=== PATIENT | female | born 1940 | race Caucasian/White ===

== ENCOUNTER 2017-01-22 07:12 | Day surgery (SDC) | payer MEDICARE, MEDICAID ==
[~2017-01-22] VITALS: Ht 152.4 cm; Wt 95.3 kg
[2017-01-22] VITALS (9 sets, daily range): BP systolic 130–153; BP diastolic 58–73
--- NOTE | 2017-01-22 07:11 | Pre-Procedure Note/Attestation ---
Pre-Procedure Note/Attestation Complete Prior to Procedure Planned Procedure: left - Removal of cataract and placement of intraocular lens , left eye Procedure Narrative: Removal of cataract and placement of intraocular lens, left eye Indications for Procedure Pre-Operative Diagnosis: Cataract , nuclear, cortical, left eye Attestation I attest that I discussed the nature of the procedure; its benefits; risks and complications; and alternatives (and the risks and benefits of such alternatives ), prior to the procedure, with the patient (or the patient's legal sales representative public [employer]). I attest that, if there was a reasonable possibility of needing a blood transfusion, the patient (or the patient's legal sales representative public [employer]) was given the [place] [facility] standardized written summary, pursuant to the [place] Blood Safety Act ([place] Health and Safety Code # 1645, as amended). I attest that I re-evaluated the patient just prior to the surgery and that there has been no change in the patient's H&P, except as documented below: Dionicio Ortega MD Jan 22, 2017 07:11
[~2017-01-22 07:12] MED LIST: ASPIRIN81 MG ORAL; BENICAR5 MG ORAL; BYSTOLIC2.5 MG ORAL; GLIPIZIDE5 MG ORAL; JANUMET 50-1,01 EACH ORAL; LEVEMIR FL100 UNIT/1 SUBQ; LOVASTATIN20 MG ORAL; VICTOZA 2-0.6 MG/0.1 SUBQ; VITAMIN B650 M1 PO
[2017-01-22] MEDS ORDERED: Phenylephrine 10% Opth Soln 5ml ONE (07:38)
[2017-01-22] MEDS ORDERED: Akten 3.5% 1ml Btl ONE (07:38)
[2017-01-22] MEDS ORDERED: Vigamox Opth Soln ONE (07:38)
[2017-01-22] MEDS ORDERED: Cyclopentolate 1% Opth Sol ONE (07:39)
[2017-01-22] MEDS ORDERED: Flurbiprofen 0.03% Opth Sol 2.5ml ONE (07:39)
[2017-01-22] MEDS: Phenylephrine 10% Opth Soln 5ml LEFT EYE SCH ×3 (07:43→08:02)
[2017-01-22] MEDS: Flurbiprofen 0.03% Opth Sol 2.5ml LEFT EYE SCH ×3 (07:43→08:01)
[2017-01-22] MEDS: Cyclopentolate 1% Opth Sol LEFT EYE SCH ×3 (07:44→08:02)
[2017-01-22] MEDS: Akten 3.5% 1ml Btl LEFT EYE SCH ×3 (07:44→08:02)
[2017-01-22] MEDS: Vigamox Opth Soln LEFT EYE SCH ×3 (07:44→08:02)
[2017-01-22] MEDS ORDERED: fentaNYL 100 mcg/2 mL IV ONE (09:30)
[2017-01-22] MEDS ORDERED: Midazolam 2mg/2ml Inj ONE (09:30)
[2017-01-22] MEDS ORDERED: LR 1000ml ONE (09:30)
[2017-01-22] MEDS ORDERED: NS Irrig 1000ml ONE (09:30)
[2017-01-22] MEDS ORDERED: Sterile Water Irrig 1000ml IRRIG ONE (09:30)
[2017-01-22] MEDS ORDERED: BSS 500ml btl ONE (09:35)
[2017-01-22] MEDS ORDERED: Lidocaine 1% MPF 10mg/ml 5ml ONE (09:35)
[2017-01-22] MEDS ORDERED: Fluorescein Strips ONE (09:35)
[2017-01-22] MEDS ORDERED: Pred Forte 1% Opth Susp 1ml ONE (09:35)
[2017-01-22] MEDS ORDERED: Tetracaine 0.5% Opth Soln ONE (09:36)
[2017-01-22] MEDS ORDERED: Maxitrol Opth Oint 3.5gm ONE (09:36)
[2017-01-22] MEDS ORDERED: Dexamethasone 4mg/ml vial ONE (09:36)
[2017-01-22] MEDS ORDERED: Lidocaine 4% Amp ONE (09:36)
[2017-01-22] MEDS ORDERED: Carbachol 0.01% Op Soln 1.5ml vial ONE (09:37)
[2017-01-22] MEDS ORDERED: Povidone-Iodine 5% opth solution ONE (09:37)
[2017-01-22] MEDS ORDERED: EPINEPHrine 1mg/1ml Amp ONE (09:37)
[2017-01-22] MEDS ORDERED: BSS 15ml BTL ONE (09:38)
[2017-01-22] MEDS ORDERED: Sodium Hyaluronate 10 mg/ml 0.85ml ONE ×2 (09:39→13:49)
[2017-01-22] MEDS ORDERED: DiphenhydrAMINE 50mg/ml Inj ONE (10:07)
--- NOTE | 2017-01-22 10:24 | Anethesia Preoperative Eval ---
Anesthesia Pre-op PMH/ROS General Date of Evaluation: Jan 22, 2017 Time of Evaluation: 09:27 Anesthesiologist: barry ASA Score: ASA 3 Mallampati Score Class I : Soft palate, uvula, fauces, pillars visible Class II: Soft palate, uvula, fauces visible Class III: Soft palate, base of uvula visible Class IV: Only hard plate visible Mallampati Classification: Class II Surgeon: donnell Diagnosis: cataract left eye Surgical Procedure: removal of catract left eye with IOL placement Anesthesia History: none Family History: no anesthesia problems Allergies: Coded Allergies: No Known Allergies (Unverified , 09/20/14) Medications: see eMAR Past Medical History Cardiovascular: Denies: CAD, HTN, CA, arrhythmia, other, valve dz Pulmonary: Denies: COPD, MEGAN, asthma, other Gastrointestinal/Genitourinary: Reports: GERD Neurologic/Psychiatric: Denies: CVA, TIA, dementia, depression/anxiety, other Endocrine: Reports: hypothyroidism HEENT: Reports: cataract (L) Hematology/Immune: Denies: DVT, anemia, bleeding disorder, other Musculoskeletal/Integumentary: Denies: DDD, DJD, OA, RA, edema, other Other: obesity Anesthesia Pre-op Phys. Exam Physician Exam Last Vital Signs Date Time Temp Pulse Resp B/P Pulse Ox O2 Delivery O2 Flow Rate FiO2 01/22/17 07:57 97.5 67 18 149/58 96 Room Air Constitutional: NAD Neurologic: CN 2-12 intact Cardiovascular: RRR Respiratory: CTA - decreased at base Gastrointestinal: S/NT/ND Airway Exam Mallampati Score: Class II MO: full ROM: full Teeth: missing Dentures: upper - partial Anesthesia Pre-op A/P Studies Pre-op Studies: EKG - NSB Risk Assessment & Plan Status Change Before Surgery: No Pre-Antibiotics Given Within 1 Hr of Incision: No Elizabet Oliver CRNA Jan 22, 2017 10:24
--- NOTE | 2017-01-22 10:37 | Brief Operative Note ---
Immediate Post Operative Note Operative Note Pre-op Diagnosis: Cataract , nuclear, cortical, left eye Procedure: phaco pc iol, OS Post-op Diagnosis: same as pre-op Surgeon: Keila Ortega MD Anesthesiologist: Louis Oliver CRNA Anesthesia: local, MAC Specimen: none Complications: none Estimated Blood Loss: minimal Implant(s) used?: Yes - jeremiah foreman zcb00 25.5 Dionicio Ortega MD Jan 22, 2017 10:37
--- NOTE | 2017-01-22 10:43 | Discharge Instructions ---
Discharge Instructions Discharge Instructions Follow Up Orders Keep shield on at all times except to place eye drops Continue pre op eye drops Return to Work/School on: Jan 22, 2017 For Congestive Heart Failure Reminder Report to your physician any weight gain of 5 pounds or more in one week. Dionicio Ortega MD Jan 22, 2017 10:43
--- NOTE | 2017-01-22 10:43 | Discharge Instructions ---
Discharge Instructions Discharge Instructions Follow Up Orders Followup in Dr Ortega's office tomorrow Return to Work/School on: Jan 22, 2017 For Congestive Heart Failure Reminder Report to your physician any weight gain of 5 pounds or more in one week. Dionicio Ortega MD Jan 22, 2017 10:43
--- NOTE | 2017-01-22 12:05 | Immediate Post-Op Evaluation ---
Immediate Post-Op Evalulation Immediate Post-Op Evalulation Date of Evaluation: Jan 22, 2017 Time of Evaluation: 10:37 IV Fluids: 400 Estimated Blood Loss: 0 Blood Pressure Systolic: 151 Blood Pressure Diastolic: 73 Pulse Rate: 57 Respiratory Rate: 22 O2 Sat by Pulse Oximetry: 100 Temperature (Fahrenheit): 97 Pain Score (1-10): 0 Nausea: No Vomiting: No Patient Status: awake Hydration Status: adequate Given Within 1 Hr of Incision: Elizabet Santamaria CRNA Jan 22, 2017 12:05
--- NOTE | 2017-01-22 12:06 | 48 Hour Post Anesthesia Eval ---
Post Anesthesia Evaluation Date of Evaluation: Jan 22, 2017 Time of Evaluation: 10:45 Blood Pressure Systolic: 150 0: 70 Pulse Rate: 56 Respiratory Rate: 18 Temperature (Fahrenheit): 97 O2 Sat by Pulse Oximetry: 100 Airway: patent Nausea: No Vomiting: No Pain Intensity: 0 Hydration Status: adequate Mental Status/LOC: patient returned to baseline Follow-up care needed: patient intructions given Elizabet Oliver CRNA Jan 22, 2017 12:06
--- NOTE | 2017-01-22 19:45 | Operative Note - Dictated ---
DATE OF OPERATION: 01/22/2017 SURGEON: Dionicio Ortega M.D. REAL ESTATE ACQUISITION ANALYST: None. ANESTHESIOLOGIST: ANESTHESIA: Local/standby/monitored anesthesia care. PREOPERATIVE DIAGNOSIS: Cataract, nuclear, cortical, left eye. POSTOPERATIVE DIAGNOSIS: Cataract, nuclear, cortical, left eye. PROCEDURES: 1. Phacoemulsification of cataract, left eye. 2. Placement of posterior chamber intraocular lens, left eye (TECNIS MARITA model ZCB00, power 25.5 diopters). SPECIMENS: None. COMPLICATIONS: None. INDICATIONS FOR SURGERY: The patient has had painless progressive decrease in visual acuity in left eye secondary to cataract. The patient understands the risks of surgery including infection, bleeding, need for further surgery, loss of vision, no improvement in vision, loss of the eye, loss of life, glaucoma, retinal detachment, understands these risks and elects to proceed with surgery. FINDINGS: The patient had a +3 nuclear sclerotic cataract as well as +1 to 2 cortical changes. 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 Operative Note: After informed consent was obtained, the patient was brought into the operating room, placed in supine position. Cardiac and respiratory monitors were attached. A time-out was performed and all criteria were met and everyone in the room agreed. The left eye was then draped and prepped in sterile manner for ocular surgery. A lid speculum placed in the eye. A 1% lidocaine preservative-free was injected at the approximate 1 o'clock limbus. A conjunctiva peritomy from approximately 1 o'clock to 2:30 was made and dissected posteriorly. Hemostasis was maintained with bipolar cautery. A 2.6 mm limbal incision was made centered approximately 2 o'clock and dissected anteriorly. A paracentesis was made at approximately 5:30 and Shugarcaine was injected into the anterior chamber followed by Healon. The anterior chamber was then entered using a 2.6 mm keratome through the limbal incision. An anterior capsulorrhexis was then performed. Hydrodissection and hydrodelineation of the lens was then performed. The lens was phacoemulsified using divide and conquer four-quadrant technique. Residual cortical material was then aspirated. Healon was then injected into the anterior chamber and capsular bag. The lens was taken from its package, placed into the cartridge, and the tip of the cartridge was placed through the limbal incision. The lens was injected into the capsular bag and centered nicely with a [place] hook. Healon was aspirated from the anterior chamber and capsular bag. One 10-0 nylon interrupted suture was then placed through the limbal incision. The knot was rotated and buried. Care was taken during the entire procedure not to touch the endothelium. Several fragments of cortex were irrigated free at the end the case and also note that the anterior chamber was shallow. The patient tolerated the procedure well and left the operating room awake, alert, and in stable condition. After the drapes were removed and drops of Pred Forte, Vigamox, and Maxitrol ointment were applied to the eye and then a shield. The patient left the operating room awake, alert, and in stable condition. She is to follow up the next day, but sooner on a p.r.n. basis. Dionicio Ortega M.D. DR: ERIC JOB#: [id number] CC:
== END 2017-01-22 11:40 | disposition home or self-care (01) ==
LOC: SUR 07:12
DX: H25.12 Age-related nuclear cataract, left eye (principal); H25.012 Cortical age-related cataract, left eye; E03.9 Hypothyroidism, unspecified; E66.9 Obesity, unspecified; M54.9 Dorsalgia, unspecified; K21.9 Gastro-esophageal reflux disease without esophagitis; E11.9 Type 2 diabetes mellitus without complications; E78.5 Hyperlipidemia, unspecified; I10 Essential (primary) hypertension; M19.90 Unspecified osteoarthritis, unspecified site; D64.9 Anemia, unspecified; M81.0 Age-related osteoporosis without current pathological fracture; Z87.442 Personal history of urinary calculi; Z90.49 Acquired absence of other specified parts of digestive tract
CPT/HCPCS: 66984; 82962; J0171; J1100; J1200; J2250; J3010; J7120; V2632; 94003; 94150